=== PATIENT | male | born 1955 | race Caucasian/White ===

== ENCOUNTER 2020-01-21 12:00 | Inpatient (IN) ==
[2020-01-21] MEDS ORDERED: METOPROLOL TARTRATE 5 MG/5 ML VIAL IV ONE (12:16)
[2020-01-21] MEDS ORDERED: ONDANSETRON 4 MG/2 ML VIAL ONE (12:16)
[2020-01-21] MEDS ORDERED: ASPIRIN 325 MG TABLET ONE (12:16)
[2020-01-21] MEDS ORDERED: MORPHINE 4 MG/1 ML VIAL ONE (12:16)
[2020-01-21] MEDS ORDERED: HEPARIN 5,000 UNIT/1 ML VIAL ONE ×2 (12:16→12:41)
[2020-01-21] MEDS ORDERED: MORPHINE 4 MG/1 ML VIAL IV PRN (12:26)
[2020-01-21] MEDS ORDERED: MAGNESIUM SULF RIDER 2 GM in PREMIX 1 EACH IV PRN ×2 (12:26→12:38)
[2020-01-21] MEDS ORDERED: MAGNESIUM SULF RIDER 4 GM in PREMIX 1 EACH IV PRN (12:26)
[2020-01-21] MEDS ORDERED: DOCUSATE SODIUM 100 MG CAPSULE PO PRN (12:26)
[2020-01-21] MEDS ORDERED: POTASSIUM CHLORIDE 20 MEQ TABLET PO PRN (12:26)
[2020-01-21] MEDS ORDERED: diphenhydrAMINE CAP 25 MG CAPSULE PO PRN (12:26)
[2020-01-21] MEDS ORDERED: ONDANSETRON 4 MG/2 ML VIAL IV PRN (12:26)
[2020-01-21] MEDS ORDERED: PROMETHAZINE 25 MG TABLET PO PRN (12:26)
[2020-01-21] MEDS ORDERED: ZALEPLON 5 MG CAPSULE PO PRN (12:26)
[2020-01-21] MEDS ORDERED: ALUMINUM/MAGNES/SIMETH MAX STR 30 ML UDCUP PO PRN (12:26)
[2020-01-21] MEDS ORDERED: guaiFENesin/DM ER 600-30 MG TABLET PO PRN (12:26)
[2020-01-21] MEDS ORDERED: hydrALAZINE 20 MG/1 ML VIAL IV PRN (12:26)
[2020-01-21] MEDS ORDERED: ACETAMINOPHEN 325 MG TABLET PO PRN (12:26)
[2020-01-21] MEDS ORDERED: MIDAZOLAM 2 MG/2 ML VIAL ONE (12:32)
[2020-01-21] MEDS ORDERED: fentaNYL 100 MCG/2 ML VIAL ONE (12:32)
[2020-01-21] MEDS ORDERED: LIDOCAINE 1% 20 ML VIAL ONE (12:32)
[2020-01-21] MEDS ORDERED: POTASSIUM CHLORIDE RIDER 10 MEQ in PREMIX 1 EACH IV PRN (12:38)
[2020-01-21] MEDS ORDERED: METOPROLOL TARTRATE 5 MG/5 ML VIAL IV STA (12:45)
[2020-01-21] MEDS ORDERED: ONDANSETRON 4 MG/2 ML VIAL IV STA (12:47)
[2020-01-21] MEDS ORDERED: MORPHINE 4 MG/1 ML VIAL IV STA (12:47)
[2020-01-21] MEDS ORDERED: HEPARIN 5,000 UNIT/1 ML VIAL IV STA (12:47)
[2020-01-21] MEDS ORDERED: ASPIRIN 325 MG TABLET PO STA (12:48)
[2020-01-21 13:13] LABS: CKMB % 12.9 %
[2020-01-21 13:16] LABS: Troponin I 22.1 NG/ML (0.00-0.045)
[2020-01-21] MEDS ORDERED: TIROFIBAN 5,000 MCG/100 ML PREMIX IV ONE (13:22)
[2020-01-21] MEDS ORDERED: TIROFIBAN 5,000 MCG/100 ML PREMIX IV SCH (13:29)
[2020-01-21] MEDS ORDERED: TICAGRELOR 90 MG TABLET ONE (13:34)
[2020-01-21] MEDS ORDERED: DEXTROSE 50% 25 GM/50 ML VIAL IV PRN ×2 (13:35→14:21)
[2020-01-21] MEDS ORDERED: GLUCAGON 1 MG VIAL IM PRN ×2 (13:35→14:21)
[2020-01-21] MEDS: carvediloL 6.25 MG TABLET PO SCH ×2 (14:56→21:14)
[2020-01-21 15:25] LABS: Basophils # 0.1 10*3/uL (0.0-0.2); Basophils % 0.4 % (0.0-0.8); Eosinophils # 0.2 10*3/uL (0.0-0.87); Eosinophils % 1.6 % (0.00-10.9); Hematocrit 48.3 VOL% (42.0-52.0); Hemoglobin 16.3 GM/DL (14.0-18.0); Immature Granulocytes % 0.3 %; Immature Granulocytes Absolute 0.04 #; Lymphocytes # 2.3 10*3/uL (1.4-4.0); Lymphocytes % 18.3 % (21.2-54.2); Mean Corpuscular HGB Conc 33.7 GM/DL (32-36); Mean Corpuscular Volume 87.7 FL (87-102); Mean Platelet Volume 9.8 FL (9.6-12.0); Monocytes % 4.6 % (1.7-12.7); Neutrophils % 74.8 % (38.7-73.9); Platelet Count 164 T/CUMM (130-400); Red Blood Count 5.51 MC/CUMM (3.8-5.5); Red Cell Distribution Width 13.3 % (9.3-17.3); White Blood Count 12.5 T/CUMM (4-12)
[2020-01-21 15:56] LABS: Risk Ratio 5.88; VLDL CHOLESTEROL 21.8 MG/DL
[2020-01-21 16:05] LABS: Calcium 9.4 MG/DL (8.5-10.1); Osmolality,Calculated 274.2 MOS/KG (273-304)
[2020-01-21 16:16] LABS: CKMB % 12.3 %
[2020-01-21 16:20] LABS: Troponin I 61.1 NG/ML (0.00-0.045)
[2020-01-21] MEDS ORDERED: INSULIN LISPRO 100 UNIT/ML SUBCUT SCH (16:30)
[2020-01-21] MEDS: INSULIN REGULAR 100 UNIT/ML SUBCUT SCH ×2 (16:30→21:14)
[2020-01-21] MEDS ORDERED: METOPROLOL TARTRATE 25 MG TABLET PO SCH (17:00)
[2020-01-21] MEDS: SODIUM CHLORIDE 0.9% 1,000 ML IV SCH ×2 (20:36)
[2020-01-21] MEDS: TICAGRELOR 90 MG TABLET PO SCH (21:14)
[2020-01-21] MEDS: ROSUVASTATIN 20 MG TABLET PO SCH (21:14)
[2020-01-21] MEDS: INSULIN GLARGINE 100 UNIT/ML SUBCUT SCH (21:14)
[2020-01-21 22:56] LABS: CKMB % 9.7 %
[2020-01-21 22:57] LABS: Troponin I 38.2 NG/ML (0.00-0.045)
[2020-01-22] MEDS: INSULIN REGULAR 100 UNIT/ML SUBCUT SCH ×4 (06:57→21:35)
[2020-01-22 06:59] LABS: Basophils # 0.1 10*3/uL (0.0-0.2); Basophils % 0.6 % (0.0-0.8); Eosinophils # 0.3 10*3/uL (0.0-0.87); Eosinophils % 3.1 % (0.00-10.9); Hematocrit 42.7 VOL% (42.0-52.0); Hemoglobin 14.7 GM/DL (14.0-18.0); Immature Granulocytes % 0.4 %; Immature Granulocytes Absolute 0.04 #; Lymphocytes # 2.5 10*3/uL (1.4-4.0); Lymphocytes % 24.1 % (21.2-54.2); Mean Corpuscular HGB Conc 34.4 GM/DL (32-36); Mean Platelet Volume 9.9 FL (9.6-12.0); Monocytes % 9.6 % (1.7-12.7); Neutrophils % 62.2 % (38.7-73.9); Platelet Count 150 T/CUMM (130-400); Red Blood Count 4.85 MC/CUMM (3.8-5.5); Red Cell Distribution Width 13.3 % (9.3-17.3); White Blood Count 10.3 T/CUMM (4-12)
[2020-01-22 07:27] LABS: CKMB % 6.6 %
[2020-01-22 07:29] LABS: Troponin I 21.4 NG/ML (0.00-0.045)
[2020-01-22 07:35] LABS: Calcium 8.6 MG/DL (8.5-10.1); Osmolality,Calculated 278.5 MOS/KG (273-304)
[2020-01-22] MEDS: ASPIRIN EC 81 MG TABLET PO SCH (08:45)
[2020-01-22] MEDS: TICAGRELOR 90 MG TABLET PO SCH ×2 (08:45→21:32)
[2020-01-22] MEDS: carvediloL 6.25 MG TABLET PO SCH ×2 (08:45→21:32)
[2020-01-22] MEDS: PANTOPRAZOLE 40 MG TABLET PO SCH (08:45)
[2020-01-22] MEDS: ROSUVASTATIN 20 MG TABLET PO SCH (21:32)
[2020-01-22] MEDS: INSULIN GLARGINE 100 UNIT/ML SUBCUT SCH (21:33)
[2020-01-22] MEDS: cilostazoL 50 MG TABLET PO SCH (21:33)
[2020-01-23 08:08] VITALS: BP 111/65
[2020-01-23] MEDS: ASPIRIN EC 81 MG TABLET PO SCH (08:59)
[2020-01-23] MEDS: carvediloL 6.25 MG TABLET PO SCH (08:59)
[2020-01-23] MEDS: INSULIN REGULAR 100 UNIT/ML SUBCUT SCH (08:59)
[2020-01-23] MEDS: TICAGRELOR 90 MG TABLET PO SCH (09:00)
[2020-01-23] MEDS: PANTOPRAZOLE 40 MG TABLET PO SCH (09:00)
[2020-01-23] MEDS: cilostazoL 50 MG TABLET PO SCH (09:00)
[2020-01-23 09:34] LABS: Basophils # 0.1 10*3/uL (0.0-0.2); Basophils % 0.8 % (0.0-0.8); Eosinophils # 0.4 10*3/uL (0.0-0.87); Hemoglobin 13.5 GM/DL (14.0-18.0); Immature Granulocytes % 0.3 %; Immature Granulocytes Absolute 0.03 #; Lymphocytes # 2.5 10*3/uL (1.4-4.0); Lymphocytes % 26.4 % (21.2-54.2); Mean Corpuscular HGB Conc 33.8 GM/DL (32-36); Mean Corpuscular Volume 88.7 FL (87-102); Mean Platelet Volume 9.9 FL (9.6-12.0); Monocytes % 7.9 % (1.7-12.7); Neutrophils % 60.6 % (38.7-73.9); Platelet Count 138 T/CUMM (130-400); Red Blood Count 4.51 MC/CUMM (3.8-5.5); Red Cell Distribution Width 13.3 % (9.3-17.3); White Blood Count 9.6 T/CUMM (4-12)
[2020-01-23 10:02] LABS: CKMB % 2.5 %; Calcium 8.4 MG/DL (8.5-10.1); Osmolality,Calculated 285.7 MOS/KG (273-304)
[2020-01-23 10:04] LABS: Troponin I 10.4 NG/ML (0.00-0.045)
[2020-01-23 10:58] LABS: Hypochromasia Slight; Microcytosis Slight; Platelet Estimate Adequate
== END 2020-01-23 10:40 | disposition home or self-care (01) | DRG 251 ==
LOC: N.ED 12:00 → N.TELES 12:22 → N.EDINP 12:26 → N.TELES 14:13
PROVIDERS: ADMIT Internal Medicine Cardiovascular Disease; ATTEND Internal Medicine Cardiovascular Disease
PROC: CLCCHCL (ICD-10-PCS; 2020-01-21 12:45)